=== PATIENT | female | born 1975 | race Caucasian/White ===

== ENCOUNTER 2016-12-08 08:26 | Emergency (ER) | payer SELFPAY ==
[2016-12-08 08:34] VITALS: BP 122/95; PULSE 102; RESP 18; TEMP 98.4
[2016-12-08] MEDS ORDERED: methylPREDNISolone SOD SUCCI 125 MG/2 ML VIAL IM STA (08:41)
[2016-12-08] MEDS ORDERED: ORPHENADRINE 30 MG/ML 2 ML VIAL IM STA (08:41)
[2016-12-08] MEDS ORDERED: KETOROLAC 60 MG/2 ML VIAL IM STA (08:41)
--- NOTE | 2016-12-08 08:55 | ED ---
Back Pain HPI - General Chief Complaint: Back Pain/Injury Stated Complaint: back pain Time Seen by Provider: 12/08/16 08:37 Source: patient, RN notes reviewed Limitations: physical limitation - History of Present Illness Initial Comments: 41-year-old female presents to the emergency department with a chief complaint of low back pain. 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 Patient states that she bent over she heard and felt a pop in her back. Patient states since she had pain to the left side of her back. Patient states there is no radiation of the pain. Patient states the constant type pain worse to movement or certain touching. Patient states that she's never had any problems with back pain before. Patient denies any loss of bowel or bladder function with this or any saddle anesthesia. Patient states there was no fall and she has no other injury. Patient states that she was concerned due to her symptoms so she thought that she should be evaluated. Patient denies any recent fever, chills, shortness of breath, chest pain, abdominal pain, nausea vomiting, numbness or tingling, dysuria or hematuria, constipation or diarrhea, headaches or visual changes, or any other current symptoms. - Related Data Previous Rx's Medication Instructions Recorded Ibuprofen [Motrin] 600 mg PO Q6HR PRN #20 tab 12/08/16 Orphenadrine [Norflex] 100 mg PO Q12H #10 tablet.er 12/08/16 predniSONE 50 mg PO DAILY #5 tab 12/08/16 Allergies Allergy/AdvReac Type Severity Reaction Status Date / Time sulfamethoxazole Allergy Swelling Verified 12/08/16 09:20 [From Bactrim] trimethoprim [From Bactrim] Allergy Swelling Verified 12/08/16 09:20 tramadol AdvReac Nausea & Verified 12/08/16 09:20 Vomiting Review of Systems ROS Statement: Those systems with pertinent positive or pertinent negative responses have been documented in the HPI. ROS Other: All systems not noted in ROS Statement are negative. Past Medical History Past Medical History: No Reported History History of Any Multi-Drug Resistant Organisms: None Reported Past Surgical History: Tubal Ligation Past Psychological History: No Psychological Hx Reported Smoking Status: Never smoker Past Alcohol Use History: None Reported Past Drug Use History: None Reported General Exam Limitations: physical limitation General appearance: alert, in no apparent distress Head exam: Present: atraumatic, normocephalic, normal inspection Neck exam: Present: normal inspection. Absent: tenderness, meningismus, lymphadenopathy Respiratory exam: Present: normal lung sounds bilaterally. Absent: respiratory distress, wheezes, rales, rhonchi, stridor Cardiovascular Exam: Present: regular rate, normal rhythm, normal heart sounds. Absent: systolic murmur, diastolic murmur, rubs, gallop, clicks Extremities exam: Present: normal inspection Back exam: Present: normal inspection, full ROM, CVA tenderness (L), muscle spasm, paraspinal tenderness (Left-sided). Absent: vertebral tenderness, rash noted Expanded Back exam: Absent: saddle anesthesia Back exam: Positive Straight Leg Raise: Left, Negative Straight Leg Raising: Right Course Vital Signs 12/08/16 08:31 Temperature 98.4 F Pulse Rate 102 H Respiratory 18 Rate Blood Pressure 122/95 O2 Sat by Pulse 97 Oximetry Medical Decision Making - Medical Decision Making 41-year-old female presents for appears to be lumbar strain. This and was started on muscle relaxer steroids and anti-inflammatories for home. We did give her information to follow-up with her family care doctor. We did discuss return parameters and all the patient's family's questions. They stated they understood the plan. They will be discharged home. - Radiology Data Radiology results: report reviewed, image reviewed Disposition Clinical Impression: Lumbar strain Disposition: HOME SELF-CARE Condition: Stable Instructions: Lower Back Exercises (ED), Low Back Strain (ED) Additional Instructions: Please use medication as discussed. Please follow up with family doctor if symptoms have not improved over the next two days. Please return to the emergency room if your symptoms increase or worsen or for any other concerns. Prescriptions: Ibuprofen [Motrin] 600 mg PO Q6HR PRN #20 tab PRN Reason: Pain Orphenadrine [Norflex] 100 mg PO Q12H #10 tablet.er predniSONE 50 mg PO DAILY #5 tab Referrals: Mavis Johnson MD [STAFF PHYSICIAN] - 1-2 days Time of Disposition: 09:27
--- NOTE | 2016-12-08 09:19 | XR ---
EXAMINATION TYPE: XR lumbar spine 2 or 3V DATE OF EXAM: 12/08/2016 9:10 AM COMPARISON: NONE HISTORY: 41 year-old female left lower back pain after lifting injury yesterday TECHNIQUE: 3 views FINDINGS: Very gentle levoconvex curvature of the lumbar spine. Vertebral body heights are preserved and alignm ent is maintained. Disc interspaces are also relatively maintained. Mild facet degenerative change lo wer lumbar spine. IMPRESSION: 1. Very slight levoconvex curvature of the lumbar spine could be positional or due to muscle spasm/st rain. 2. No vertebral compression collapse or malalignment. Mild facet arthropathy lower lumbar spine.
== END 2016-12-08 10:01 | disposition home or self-care (01) ==
LOC: EC 08:26
DX: S39.012A Strain of muscle, fascia and tendon of lower back, initial encounter (principal); Z88.6 Allergy status to analgesic agent; Z88.2 Allergy status to sulfonamides; X50.1XXA Overexertion from prolonged static or awkward postures, initial encounter; Y92.096 Garden or yard of other non-institutional residence as the place of occurrence of the external cause
CPT/HCPCS: 72100; 99283; 96372 ×3; J2360; J2930; J1885